=== PATIENT | male | born 1990 | race Caucasian/White ===

== ENCOUNTER 2023-11-13 23:04 | Emergency (ER) | payer SELFPAY ==
[~2023-11-13] VITALS: Ht 182.9 cm; Wt 100.0 kg
[2023-11-14 00:04] VITALS: BP 145/98; PULSE 82; RESP 20; TEMP 98.3; O2SAT 100
[2023-11-14] MEDS: BACITRACIN ZINC OINT UDPKT TOP ONE (02:10)
[2023-11-14] MEDS: LIDOCAINE HCL/PF 1% 10 MG/ML 5ML VIAL INFIL ONE (02:10)
== END 2023-11-14 02:11 | disposition home or self-care (01) ==
LOC: ER 23:04
DX: S91.114A Laceration without foreign body of right lesser toe(s) without damage to nail, initial encounter (principal); X58.XXXA Exposure to other specified factors, initial encounter; Y93.89 Activity, other specified; Y92.89 Other specified places as the place of occurrence of the external cause; Y99.8 Other external cause status
CPT/HCPCS: 12001; 99282; J3490; Z7610 ×2